=== PATIENT | male | born 1935 | race Caucasian/White ===

== ENCOUNTER 2021-02-21 08:27 | Day surgery (SDC) | payer MEDICARE, OTHER | END 2021-02-21 10:34 | disposition home or self-care (01) | LOC: CSHSDC/OP 08:27 | PROVIDERS: ATTEND Family Medicine | DX: Z23 Encounter for immunization (principal); U07.1 COVID-19 | CPT/HCPCS: 96365; M0243; Q0244; J3490 ==

== ENCOUNTER 2021-11-28 14:00 | Outpatient (CLI) | payer MEDICARE, OTHER | END 2021-11-28 14:01 | disposition home or self-care (01) | LOC: CSHULT 14:00 | PROVIDERS: ATTEND Family Medicine | DX: R20.2 Paresthesia of skin (principal); I70.203 Unspecified atherosclerosis of native arteries of extremities, bilateral legs | CPT/HCPCS: 93923 ==